=== PATIENT | female | born 1980 | race Caucasian/White ===

== ENCOUNTER 2016-12-19 18:23 | Observation (INO) | payer OTHER ==
[2016-12-19] MEDS ORDERED: Sodium Chloride 0.9% 1,000 ML IV ONE (19:00)
[2016-12-19] MEDS ORDERED: Morphine 2 MG/ML Syringe IVPUSH ONE (19:00)
[2016-12-19] MEDS ORDERED: Ondansetron 4 MG/2 ML SDV IV ONE (19:00)
--- NOTE | 2016-12-19 19:05 | EDM.PDOC ---
ED HPI GI/ABDOMINAL - General Chief Complaint: Abdominal Pain Stated Complaint: ABDOMINAL PAIN Time Seen by Provider: 12/19/16 19:01 Source of Information: Reports: Patient History Limitations: Reports: No limitations - History of Present Illness INITIAL COMMENTS - FREE TEXT/NARRATIVE: epiG pain been on prilosec. has appt with GI @ [facility] thursday. pain worse today N/V. - Related Data Allergies/ADRs: Allergies Allergy/AdvReac Type Severity Reaction Status Date / Time Sulfa (Sulfonamide Allergy Hives Verified 11/18/16 16:03 Antibiotics) Home Meds: Home Meds Acetaminophen [Tylenol] 325 mg PO PRN 11/18/16 [History] Norgestimate-Ethinyl Estradiol [Bland-Linyah 28 Tablet] 1 tab PO DAILY 11/18/16 [ History] Past Medical History - Past Surgical History HEENT Surgical History: Reports: Other (see below) Other HEENT Surgeries/Procedures: wisdom teeth Social & Family History - Family History Family Medical History: Noncontributory - Tobacco Use Smoking Status *Q: Current Some Day Smoker Years of Tobacco use: 10 Packs/Tins Daily: 0.1 Second Hand Smoke Exposure: Yes - Caffeine Use Caffeine Use: Reports: Coffee - Recreational Drug Use Recreational Drug Use: No ED ROS GENERAL - Review of Systems Review Of Systems: ROS reveals no pertinent complaints other than HPI. ED EXAM, GI/ABD - Physical Exam Exam: See Below Exam Limited By: No limitations General Appearance: alert, WD/WN, mild distress, other (crying) Ears: hearing grossly normal Throat/Mouth: Normal voice, No airway compromise Head: atraumatic Neck: non-tender, full range of motion Respiratory/Chest: no respiratory distress Cardiovascular: regular rate, rhythm GI/Abdominal: tenderness, guarding, other (epiG). No: rebound, rigidity Neurological: alert, oriented, normal cognition, no motor/sensory deficits Psychiatric: tearful Skin Exam: Warm, Dry Lymphatic: no adenopathy Course - Vital Signs Last Recorded V/S: Last Vital Signs Temp 36.6 C 12/19/16 21:54 Pulse 63 12/19/16 21:54 Resp 18 12/19/16 21:54 BP 123/69 12/19/16 21:54 Pulse Ox 98 12/19/16 21:54 - Orders/Labs/Meds Labs: Laboratory Tests 12/19/16 12/19/16 Range/Units 19:05 19:05 WBC 11.8 H (5.0-10.0) 10^3/uL RBC 4.39 (4.2-5.4) 10^6/uL Hgb 14.2 (12.0-16.0) g/dL Hct 40.7 (37.0-47.0) % MCV 92.7 (80-100) fL MCH 32.3 (27.0-34.0) pg MCHC 34.9 (33.0-35.0) g/dL Plt Count 279 (150-450) 10^3/uL Neut % (Auto) 68.8 (42.2-75.2) % Lymph % (Auto) 20.2 L (20.5-50.1) % Bland % (Auto) 9.0 H (2-8) % Eos % (Auto) 1.7 (1.0-3.0) % Baso % (Auto) 0.3 (0.0-1.0) % Sodium 136 (135-145) mmol/L Potassium 3.5 L (3.6-5.0) mmol/L Chloride 100 L (101-111) mmol/L Carbon Dioxide 25.0 (21.0-31.0) mmol/L Anion Gap 14.5 BUN 13 (7-18) mg/dL Creatinine 0.7 (0.6-1.3) mg/dL Est Cr Clr Drug Dosing TNP Estimated GFR (MDRD) > 60 BUN/Creatinine Ratio 18.57 Glucose 108 H (74-105) mg/dL Calcium 8.9 (8.4-10.2) mg/dl Total Bilirubin 1.4 H (0.2-1.0) mg/dL AST 54 H (10-42) IU/L ALT 32 (10-60) IU/L Alkaline Phosphatase 64 (42-121) IU/L Total Protein 7.5 (6.7-8.2) g/dl Albumin 4.3 (3.2-5.5) g/dl Globulin 3.2 Albumin/Globulin Ratio 1.34 Amylase 42 (28-100) U/L Lipase 22 (22-51) U/L Meds: Medications Discontinued Medications Generic Name Dose Route Start Last Admin Trade Name Freq PRN Reason Stop Dose Admin Hydromorphone HCl 1 mg 12/19/16 20:44 12/19/16 20:51 Dilaudid IVPUSH 12/19/16 20:45 1 mg ONETIME ONE Administration Sodium Chloride 1,000 mls @ 999 mls/hr 12/19/16 19:00 12/19/16 19:10 Normal Saline IV 12/19/16 20:00 999 mls/hr .BOLUS ONE Administration Iopamidol 75 ml 12/19/16 20:43 12/19/16 21:04 Isovue-300 (61%) IVPUSH 12/19/16 20:44 75 ml ONETIME ONE Administration Morphine Sulfate 2 mg 12/19/16 19:00 12/19/16 19:11 Morphine IVPUSH 12/19/16 19:01 2 mg ONETIME ONE Administration Ondansetron HCl 4 mg 12/19/16 19:00 12/19/16 19:11 Zofran IV 12/19/16 19:01 4 mg ONETIME ONE Administration - Re-Assessments/Exams Free Text/Narrative Re-Assessment/Exam: 12/19/16 22:[address] Mahoney who kindly admitted Pt. Departure - Departure Time of Disposition: 22:40 Disposition: Refer to Observation Condition: good Clinical Impression: Cholecystitis with cholangitis Forms: ED Department Discharge
[2016-12-19 19:36] LABS: CHLORIDE,CL 100 mmol/L (101-111); SODIUM,NA 136 mmol/L (135-145)
[2016-12-19] MEDS ORDERED: Iopamidol 612 MG/ML 75 ML Bottle IVPUSH ONE (20:43)
[2016-12-19] MEDS ORDERED: HYDROmorphone 1 MG/ML Syringe IVPUSH ONE (20:44)
[2016-12-19] MEDS ORDERED: Sodium Chloride 0.9% 1,000 ML IV SCH (23:30)
[2016-12-20] MEDS: Acetaminophen 325 MG Tab PO PRN ×2 (00:16→07:45)
[2016-12-20] MEDS ORDERED: HYDROmorphone 1 MG/ML Syringe IVPUSH PRN (01:25)
[2016-12-20] MEDS ORDERED: Ondansetron 4 MG/2 ML SDV IV PRN (02:31)
--- NOTE | 2016-12-20 03:22 | HP ---
CHIEF COMPLAINT: Right upper quadrant pain. HISTORY OF PRESENT ILLNESS: Ms. Eagle is a 36-year-old female, who has now had 2 months where she has had about 4 episodes of severe right upper quadrant pain. This pain just suddenly just started spontaneously and then goes ahead and radiates more to the right upper quadrant and goes into the back. The pain, she says will last for 2-3 hours. Sometimes, she actually gets like diaphoretic and then completely goes away. She does not feel that she has any real food intolerances. She does not feel that she can relate it to anything else. Of note, she has been also having some vague heartburn and she has already been scheduled for a GI evaluation, which is to include on Thursday up. Her last episode was about a month ago and she had a CT scan of her abdomen and pelvis, which was only remarkable for the Prilosec pills that was in her constipated stool. A CT scan at that time did not show anything with the gallbladder of significance. Today, she comes with another one of these attacks. She states she had one like last week, which was not as bad but this one was such that she was unable to get comfortable. She subsequently now has had some Dilaudid and she is significantly better, although she feels quite weak. Repeat CT scan of her abdomen and pelvis does show distended gallbladder with some mild thickening. They do not comment about her common bile duct but I think there is slight dilation of her common bile duct. On her CT scan, there is some nodules over lung which we will talk about later. ALLERGIES: To sulfa. CURRENT MEDICATIONS: 1. control pill. 2. . SOCIAL HISTORY: She is smoking occasional, alcohol occasion. She has 3 children, alive and well. She is and she is 1 of our nurses. PAST SURGICAL HISTORY: None. FAMILY HISTORY: She has 2 brothers alive and well. Parents alive and well. REVIEW OF SYSTEMS: She has no history of seizures. No history of thyroid, diabetes, or hepatitis. No history of shortness of breath or cough. No history of cardiac arrhythmia or palpitations. GI: As above but she does states she has never had acholic stools, bloody diarrhea, or any dark tarry stools. She is more on the constipated side. : No history of hematuria or dysuria. No history of joint pain or tenderness. No history of bruising or DVT. PHYSICAL EXAMINATION: Vital signs: GCS is 15. HEENT: Sclerae white. Neck: Without mass. Lungs: Clear. Heart: Rhythm is regular. Abdomen: There is no guarding or rebound. To deep palpation, there is some tenderness which she stated "an hour ago, you couldn't have taken care of this." Extremities: Ankles are free of edema. LABORATORY DATA: WBC is 11,800, H and H are 14 and 40, and her platelet count is 273. Her electrolytes demonstrate potassium of 3.5, her glucose is 108. Her total bilirubin is 1.4 and this was normal before. Amylase and lipase are normal and her AST is 54. IMPRESSION AND PLAN: 1. I really think this patient is having symptomatic cholelithiasis. We do not see any gallstones on her CT scan but I would highly recommend that what she does need is an ultrasound of her gallbladder as well as her common bile duct. This does not have to be done here urgently. I explained to the patient that I think we need to admit her for pain control and she needs to have a repeat of her liver function tests in the morning. If the bilirubin continues to rise, I would recommend that we need to transfer her for possible ERCP. 2. She and her understand my concerns and my desire to admit her here for observation and she agrees to do this. 3. History of some vague epigastric pain before. Like I said, for now, it appears to be biliary in nature. She could also possibly have some gastritis from the past but clearly I do not think that any of the problems at this time. This can, however, be worked up later once the biliary problem is taken care of. 4. Some chronic constipation. [facility] /[id number]
[2016-12-20 07:03] LABS: CHLORIDE,CL 106 mmol/L (101-111); SODIUM,NA 139 mmol/L (135-145)
[2016-12-20] MEDS ORDERED: cefTRIAXone 1 GM in Sodium Chloride 0.9% 100 ML IV SCH (09:30)
[2016-12-20] MEDS ORDERED: Acetaminophen/HYDROcodone 325-10 MG Tab PO PRN (09:32)
[2016-12-20 12:17] VITALS: BP 106/55
--- NOTE | 2016-12-20 14:02 | PCM.SN ---
- Free Text/Narrative Note: She is feeling better she was able to tolerate the diet the plan will be for an ultrasound of her gall bladder on thursday then perhaps eval by Dr. Wesley in [place] for brijesh or she can wait to have her surgery here when I come back. if she develops pain before that she needs to be eval again
--- NOTE | 2016-12-20 14:44 | DISCH ---
PRIMARY DIAGNOSIS: Biliary colic. PROCEDURES PERFORMED: None. BRIEF HISTORY: Rajni Eagle is a 36-year-old female, who has had three episodes of severe right upper quadrant epigastric pain over the course of the last 8-12 weeks, this is probably the most severe. Of note, her liver functions were normal a month ago. Yesterday, when she admitted, her bilirubin was up to 1.4. We subsequently admitted her overnight for pain control and to make sure that she did not have any signs of cholangitis, though she remained afebrile and her WBC was only elevated to 11,800. Over the course of night, she remained afebrile and this morning, her bilirubin was 0.9, but her AST was mildly increased at 84. Her alkaline phosphatase and her ALT were all normal. Symptomatically, she was improved and she was able to tolerate a full liquid diet. Though that we have pain control with p.o., the plan will be, on Thursday morning at 8 o'clock, I have scheduled her for an ultrasound of her gallbladder. She has not had this done in the past, she has just simply had a CT scan of her abdomen and pelvis which did not demonstrate cholelithiasis, just a little distended gallbladder. Of note, if the symptoms reoccur before that, I want her to come back immediately and I gave her my phone number. I also spoke with Dr. Garvin in [place], he is the surgeon on-call, so that if things deteriorate, he will be aware that we will have to send her there so we can get things taken care of exceptionally. As an incidental finding on the CT scan, there were several nodules both on the right and the left. She does have a history of smoking, so I did bring this to her attention and that she definitely needs to have this followed up within 6 months. Her discharge diet is bland. Discharge activity as tolerated. DISCHARGE MEDICATIONS: Shady, I gave her a total of 14 tablets, one tablet every 3 hours p.r.n. pain. If the pain is more than that, she is to come back to the Emergency Department. PROGNOSIS: Her discharge prognosis is good, but really, the plan will be we are going to see if we can get her gallbladder out here within the next week or so. [facility] /[id number]
--- NOTE | 2016-12-22 09:08 | PN ---
DATE: 12/20/2016 [facility] CHIEF COMPLAINT: Right upper quadrant pain. HISTORY OF PRESENT ILLNESS: The patient states that over the night the pain is somewhat better, although, she is a little bit sore still in the right upper quadrant only medially. She stated that she has no fever. She has had a little bit of nausea but no vomiting. She is still not hungry. PHYSICAL EXAMINATION: Vital Signs: Her GCS is 15. She is not tachycardic, and like I said she has been afebrile at 97.8, her heart rate is 63, blood pressure is stable. Abdomen: I cannot palpate her gallbladder. She does not have a Oquendo's sign, and it is similar to last night, she is a little bit sore in the right upper quadrant. LABORATORY DATA: This morning, her bilirubin normalized to 0.9, but her AST is slightly more at 84. Her alk phos is normal. IMPRESSION AND PLAN: I do think this patient had an episode of cholecystitis, probably choledocholithiasis and has passed the stone. Clearly, she is not at the point for discharge as she is still not eating, and she still has significant pain. The plan will be as decided that she does need an ultrasound of her gallbladder to evaluate the common bile duct. I explained to her that obviously we cannot do this. We do not have the capabilities here, but the fact she is getting better, I feel comfortable to do this on Thursday, then the decision would be the timing to remove her gallbladder. The plan will be today that I will come back and evaluate her early this afternoon and see if the pain is under control with some p.o. I will make sure that she has not had any sort of fever and decide whether we could discharge her if she is improving, to do this as an outpatient, or whether we would need to have to transfer her. I discussed this with the patient and her , they understand and we will proceed from here. The time I spent with her, reviewing the chart, discussing with the nurses and her I would say would be about 19-1/2 minutes. [facility] /[id number]
== END 2016-12-20 15:45 | disposition home or self-care (01) ==
LOC: DL.ED 18:23 → DL.MS 23:18
PROVIDERS: ADMIT Surgery; ATTEND Surgery
DX: K80.40 Calculus of bile duct with cholecystitis, unspecified, without obstruction (principal); Z88.2 Allergy status to sulfonamides; F17.210 Nicotine dependence, cigarettes, uncomplicated; K59.09 Other constipation
CPT/HCPCS: 36415; 74177; 80053; 82150; 83690; 85025; 96365; 96375; 99285; A9270; J0696; J1170; J2270; J2405; J7030; J7050; Q9967; 96361; 96376; 99217; 99219; G0378

== ENCOUNTER 2022-06-05 13:16 | Inpatient (IN) | payer BC, OTHER ==
[2022-06-05] MEDS ORDERED: Sodium Chloride 0.9% 1,000 ML IV ONE ×2 (15:09→15:39)
[2022-06-05] MEDS ORDERED: Ketorolac 30 MG/ML SDV IVPUSH ONE (15:09)
[2022-06-05] MEDS ORDERED: Ondansetron 4 MG/2 ML SDV IVPUSH ONE (15:09)
[2022-06-05 15:26] LABS: AMPHETAMINES,URINE NEGATIVE (NEGATIVE); BARBITURATES,URINE NEGATIVE (NEGATIVE); BENZODIAZEPINE,URINE NEGATIVE (NEGATIVE); MDMA (ECSTASY), URINE NEGATIVE (NEGATIVE); METHADONE,URINE NEGATIVE (NEGATIVE); METHAMPHETAMINES,URINE NEGATIVE (NEGATIVE); OPIATES,URINE NEGATIVE (NEGATIVE); PHENCYCLIDINE,URINE NEGATIVE (NEGATIVE); TCA,URINE NEGATIVE (NEGATIVE)
[2022-06-05 15:27] LABS: OXYCODONE,URINE NEGATIVE (NEGATIVE)
[2022-06-05 15:27] LABS: ANION GAP 13.6 mEq/L (7-13); CHLORIDE,CL 95 mmol/L (98-107); SODIUM,NA 135 mmol/L (136-145)
[2022-06-05 15:30] LABS: ESTIMATED GFR 38 mL/min (>=60)
[2022-06-05] MEDS ORDERED: Potassium Chloride 20 MEQ in Premix Bag 1 BAG IV ONE (15:39)
[2022-06-05] MEDS ORDERED: Acetaminophen 500 MG Tab PO ONE (15:56)
[2022-06-05] MEDS ORDERED: fentaNYL 100 MCG/2 ML SDV IVPUSH ONE (15:56)
[2022-06-05] MEDS ORDERED: Piperacillin/Tazobactam 3.375 GM in Sodium Chloride 0.9% 100 ML IV ONE (16:57)
[2022-06-05] MEDS ORDERED: Ondansetron 4 MG Tab.DIS PO PRN (18:08)
[2022-06-05] MEDS: Sodium Chloride 0.9% 1,000 ML IV SCH (20:11)
[2022-06-05] MEDS: cefTRIAXone 1 GM in Sodium Chloride 0.9% 50 ML IV SCH (20:16)
[2022-06-05] MEDS: Oxybutynin 5 MG Tab PO PRN (20:19)
[2022-06-05] MEDS: Acetaminophen 325 MG Tab PO PRN (20:19)
[2022-06-05] MEDS: Morphine 2 MG/ML SYRINGE IVPUSH PRN (22:19)
[2022-06-06] MEDS: Morphine 2 MG/ML SYRINGE IVPUSH PRN (00:30)
[2022-06-06] MEDS: Acetaminophen 325 MG Tab PO PRN ×2 (00:33→14:09)
[2022-06-06] MEDS: Ondansetron 4 MG/2 ML SDV IVPUSH PRN ×5 (01:20→22:36)
[2022-06-06] MEDS: HYDROmorphone 1 MG/ML Syringe IVPUSH PRN ×5 (02:39→21:56)
[2022-06-06] MEDS: Acetaminophen/Butalbital/Caffeine 325-50-40 MG Tab PO PRN ×5 (02:41→22:35)
[2022-06-06] MEDS: Sodium Chloride 0.9% 1,000 ML IV SCH ×3 (03:12→19:50)
[2022-06-06] MEDS: Oxybutynin 5 MG Tab PO PRN ×2 (08:28→16:13)
[2022-06-06] MEDS: cefTRIAXone 1 GM in Sodium Chloride 0.9% 50 ML IV SCH ×2 (08:30→21:59)
[2022-06-06 10:19] LABS: ANION GAP 11.9 mEq/L (7-13)
[2022-06-06] MEDS ORDERED: Sodium Chloride 0.9% 1,000 ML IV ONE ×2 (11:15→13:16)
[2022-06-06] MEDS ORDERED: D5 1/2 NS w/ 10 mEq/L KCl 1,000 ML IV SCH (11:30)
[2022-06-06] MEDS: Potassium Chloride Riders 10 MEQ in Premix Bag 1 BAG IV SCH ×4 (12:08→16:30)
[2022-06-07] MEDS: Sodium Chloride 0.9% 1,000 ML IV SCH ×3 (01:31→10:54)
[2022-06-07] MEDS: HYDROmorphone 1 MG/ML Syringe IVPUSH PRN ×6 (01:31→23:57)
[2022-06-07] MEDS: Acetaminophen/Butalbital/Caffeine 325-50-40 MG Tab PO PRN ×2 (06:37→17:21)
[2022-06-07] MEDS: Ondansetron 4 MG/2 ML SDV IVPUSH PRN (06:39)
[2022-06-07] MEDS ORDERED: Sodium Chloride 0.9% 500 ML IV ONE (08:30)
[2022-06-07] MEDS ORDERED: Potassium Chloride 20 MEQ in Premix Bag 1 BAG IV ONE (08:30)
[2022-06-07] MEDS: cefTRIAXone 1 GM in Sodium Chloride 0.9% 50 ML IV SCH ×2 (09:04→20:59)
[2022-06-07] MEDS: Potassium Chloride 10 MEQ Tab.ER PO SCH ×2 (09:14→14:08)
[2022-06-07] MEDS: Pantoprazole 40 MG Tab.CR PO SCH (10:53)
[2022-06-07] MEDS: DULoxetine 30 MG Cap PO SCH (10:53)
[2022-06-07] MEDS: Oxybutynin 5 MG Tab PO PRN ×2 (10:53→17:32)
[2022-06-07] MEDS: Docusate Sodium 100 MG Cap PO PRN ×2 (11:31→21:00)
[2022-06-07] MEDS: busPIRone 15 MG Tab PO SCH (11:40)
[2022-06-07] MEDS: Acetaminophen 325 MG Tab PO PRN ×2 (18:55→23:53)
[2022-06-07] MEDS: Heparin Sodium 5,000 Units/ML Vial SUBCUT SCH (21:08)
[2022-06-08] MEDS: Sodium Chloride 0.9% 1,000 ML IV SCH (01:37)
[2022-06-08] MEDS: HYDROmorphone 1 MG/ML Syringe IVPUSH PRN ×3 (05:35→22:47)
[2022-06-08] MEDS: Pantoprazole 40 MG Tab.CR PO SCH (05:37)
[2022-06-08] MEDS: Acetaminophen 325 MG Tab PO PRN ×3 (05:37→22:48)
[2022-06-08 07:25] LABS: ANION GAP 13.7 mEq/L (7-13)
[2022-06-08] MEDS: Heparin Sodium 5,000 Units/ML Vial SUBCUT SCH ×2 (09:31→20:50)
[2022-06-08] MEDS: DULoxetine 30 MG Cap PO SCH (09:33)
[2022-06-08] MEDS: busPIRone 15 MG Tab PO SCH (09:33)
[2022-06-08] MEDS: Docusate Sodium 100 MG Cap PO PRN (09:33)
[2022-06-08] MEDS: Sodium Chloride 0.9% 10 ML Syringe FLUSH PRN (09:35)
[2022-06-08] MEDS ORDERED: Water For Injection, Sterile 20 ML ONE ×2 (11:27→20:22)
[2022-06-08] MEDS: Meropenem 1 GM SDV IVPUSH SCH ×2 (11:31→20:50)
[2022-06-08] MEDS ORDERED: Midodrine 2.5 MG Tab PO PRN (11:41)
[2022-06-08] MEDS: Ondansetron 4 MG/2 ML SDV IVPUSH PRN (12:51)
[2022-06-08] MEDS ORDERED: Meropenem 1 GM SDV IVPUSH SCH (14:00)
[2022-06-08] MEDS ORDERED: Polyethylene Glycol 3350 Powder 17 GM Packet PO PRN (14:00)
[2022-06-08] MEDS ORDERED: Meropenem 1 GM in Sodium Chloride 0.9% 100 ML IV SCH (14:00)
[2022-06-08] MEDS ORDERED: Benzocaine/Docusate Sodium 20-283 MG/5 ML Enema RECTAL ONE (20:33)
[2022-06-08] MEDS ORDERED: Sodium Chloride 0.9% 500 ML IV SCH ×2 (21:45→22:01)
[2022-06-08] MEDS ORDERED: Furosemide 20 MG/2 ML VIAL IVPUSH ONE (23:58)
[2022-06-09] MEDS ORDERED: Water For Injection, Sterile 20 ML ONE (03:34)
[2022-06-09] MEDS: Meropenem 1 GM SDV IVPUSH SCH (03:54)
[2022-06-09] MEDS: Acetaminophen 325 MG Tab PO PRN ×3 (04:04→21:00)
[2022-06-09] MEDS: Pantoprazole 40 MG Tab.CR PO SCH (06:03)
[2022-06-09] MEDS: HYDROmorphone 1 MG/ML Syringe IVPUSH PRN ×3 (06:04→22:03)
[2022-06-09 07:00] LABS: ANION GAP 13.1 mEq/L (7-13)
[2022-06-09] MEDS ORDERED: Albuterol/Ipratropium 3.0-0.5 MG/3 ML Neb Soln NEB PRN (07:41)
[2022-06-09] MEDS ORDERED: Potassium Chloride 10 MEQ Tab.ER PO ONE (09:16)
[2022-06-09] MEDS ORDERED: Furosemide 20 MG/2 ML VIAL IVPUSH ONE (10:00)
[2022-06-09] MEDS: Heparin Sodium 5,000 Units/ML Vial SUBCUT SCH ×2 (10:35→22:06)
[2022-06-09] MEDS: DULoxetine 30 MG Cap PO SCH (10:36)
[2022-06-09] MEDS: busPIRone 15 MG Tab PO SCH (10:36)
[2022-06-09] MEDS: Meropenem 1 GM in Sodium Chloride 0.9% 100 ML IV SCH ×2 (13:17→22:04)
[2022-06-09] MEDS: Sodium Chloride 0.9% 10 ML Syringe FLUSH PRN (22:05)
[2022-06-10] MEDS: HYDROmorphone 1 MG/ML Syringe IVPUSH PRN (04:36)
[2022-06-10] MEDS: Pantoprazole 40 MG Tab.CR PO SCH (07:04)
[2022-06-10] MEDS: Meropenem 1 GM in Sodium Chloride 0.9% 100 ML IV SCH ×3 (07:04→21:10)
[2022-06-10] MEDS: Acetaminophen 325 MG Tab PO PRN ×2 (07:11→16:39)
[2022-06-10] MEDS ORDERED: HYDROmorphone 1 MG/ML Syringe IVPUSH PRN (07:56)
[2022-06-10] MEDS: DULoxetine 30 MG Cap PO SCH (08:58)
[2022-06-10] MEDS: busPIRone 15 MG Tab PO SCH (08:58)
[2022-06-10] MEDS: Acetaminophen/Butalbital/Caffeine 325-50-40 MG Tab PO PRN ×2 (08:59→17:30)
[2022-06-10] MEDS: Heparin Sodium 5,000 Units/ML Vial SUBCUT SCH ×2 (08:59→21:10)
[2022-06-10] MEDS: NORGESTIMATE ETHINYL ESTRADIOL PO SCH (09:00)
[2022-06-10] MEDS: Potassium Chloride 10 MEQ Tab.ER PO SCH ×2 (12:34→17:31)
[2022-06-10] MEDS: Sodium Chloride 0.9% 10 ML Syringe FLUSH PRN ×2 (21:14→23:16)
[2022-06-10] MEDS: oxyCODONE 5 MG Tab PO PRN (23:16)
[2022-06-11] MEDS: Pantoprazole 40 MG Tab.CR PO SCH (05:16)
[2022-06-11] MEDS: oxyCODONE 5 MG Tab PO PRN (05:16)
[2022-06-11] MEDS: Meropenem 1 GM in Sodium Chloride 0.9% 100 ML IV SCH (05:18)
[2022-06-11 07:01] LABS: ANION GAP 13.4 mEq/L (7-13)
[2022-06-11 08:14] VITALS: BP 117/72; PULSE 92
[2022-06-11] MEDS ORDERED: Potassium Chloride 10 MEQ Tab.ER PO ONE (08:24)
[2022-06-11] MEDS ORDERED: guaiFENesin/Dextromethorphan 100-10 MG/5 ML Soln 5 ML Cup PO PRN (09:20)
[2022-06-11] MEDS: DULoxetine 30 MG Cap PO SCH (09:27)
[2022-06-11] MEDS: busPIRone 15 MG Tab PO SCH (09:27)
[2022-06-11] MEDS: Heparin Sodium 5,000 Units/ML Vial SUBCUT SCH (09:29)
[2022-06-11] MEDS: NORGESTIMATE ETHINYL ESTRADIOL PO SCH (09:29)
[2022-06-11] MEDS: Acetaminophen 325 MG Tab PO PRN (09:55)
== END 2022-06-11 12:00 | disposition home or self-care (01) | DRG 720 ==
LOC: DL.ED 13:16 → DL.MS 17:22
PROVIDERS: ADMIT Hospitalist; ATTEND Internal Medicine
DX: A41.51 Sepsis due to Escherichia coli [E. coli] (principal); J18.9 Pneumonia, unspecified organism; J96.01 Acute respiratory failure with hypoxia; N39.0 Urinary tract infection, site not specified; B96.20 Unspecified Escherichia coli [E. coli] as the cause of diseases classified elsewhere; Z20.822 Contact with and (suspected) exposure to COVID-19; N17.9 Acute kidney failure, unspecified; E87.2 Acidosis; K21.9 Gastro-esophageal reflux disease without esophagitis; I12.9 Hypertensive chronic kidney disease with stage 1 through stage 4 chronic kidney disease, or unspecified chronic kidney disease; N18.9 Chronic kidney disease, unspecified; E87.6 Hypokalemia; Z79.1 Long term (current) use of non-steroidal anti-inflammatories (NSAID); Z79.52 Long term (current) use of systemic steroids; Z79.899 Other long term (current) drug therapy; Z88.2 Allergy status to sulfonamides; Z87.440 Personal history of urinary (tract) infections; Z90.49 Acquired absence of other specified parts of digestive tract
CPT/HCPCS: 36415; 51798; 71250; 74176; 80048; 80053; 80202; 80305-QW; 80307; 81001; 81025; 82150; 83605; 83690; 83735; 83880; 84145; 85025; 86038; 86140; 86317; 86803; 87040; 87086; 87088; 87186; 87340; 87641; 96361; 96374; 96375; 99284; 99285-25; A9270-GY; C1758; J0696; J1170; J1644; J1885; J1940; J2185; J2270; J2405; J2543; J3010; J3370; J3480; J3490; J7030; J7040; J7050; U0002

== ENCOUNTER 2022-08-16 09:52 | Emergency (ER) | payer BC ==
[2022-08-16 10:16] VITALS: BP 129/89; PULSE 106
[2022-08-16 11:23] LABS: ANION GAP 13.6 mEq/L (7-13)
[2022-08-16 11:24] LABS: CORONAVIRUS COVID-19 NAA POSITIVE (NEGATIVE)
[2022-08-16] MEDS ORDERED: Ketorolac 30 MG/ML SDV IM ONE (11:30)
[2022-08-16] MEDS ORDERED: diphenhydrAMINE 25 MG Tab PO ONE (11:31)
[2022-08-16] MEDS ORDERED: Metoclopramide 10 MG Tab PO ONE (11:31)
== END 2022-08-16 12:40 | disposition home or self-care (01) ==
LOC: DL.ED 09:52
DX: U07.1 COVID-19 (principal); G43.909 Migraine, unspecified, not intractable, without status migrainosus
CPT/HCPCS: 0240U; 36415; 80053; 82150; 83605; 83690; 85025; 87081; 87430; 96372; 99284; A9270; J1885

== ENCOUNTER 2024-03-11 11:25 | Emergency (ER) | payer BC ==
[2024-03-11 10:30] LABS: BASOPHILS PERCENT AUTO 0.1 % (0.0-1.0); HEMATOCRIT 41.8 % (37.0-47.0); HEMOGLOBIN 14.9 g/dL (12.0-16.0); LYMPHOCYTES PERCENT AUTO 2.7 % (20.5-50.1); MEAN CORPUSCULAR HEMOGLOBIN 34.5 pg (27.0-34.0); MEAN CORPUSCULAR HGB CONC 35.6 g/dL (33.0-35.0); MEAN CORPUSCULAR VOLUME 96.8 fL (80-100); MONOCYTES PERCENT AUTO 3.5 % (2-8); NEUTROPHILS PERCENT AUTO 93.7 % (42.2-75.2); PLATELET COUNT,PLT 267 10^3/uL (150-450); RED BLOOD CELL COUNT 4.32 10^6/uL (4.2-5.4); WHITE BLOOD CELL COUNT,WBC 25.3 10^3/uL (5.0-10.0)
[2024-03-11 10:45] LABS: INR 0.9 (0.9-1.2); PROTHROMBIN TIME 9.5 SEC (9.0-12.0)
[2024-03-11] MEDS: Iopamidol 612 MG/ML 100 ML Bottle IVPUSH ONE (10:55)
[2024-03-11 11:02] LABS: ALANINE AMINOTRANSFERASE,ALT 27 U/L (14-59); ALBUMIN 3.6 g/dL (3.4-5.0); ALKALINE PHOSPHATASE 76 U/L (46-116); ANION GAP 19.1 mEq/L (7-13); ASPARTATE AMNIOTRANSFERASE,AST 55 U/L (15-37); BILIRUBIN TOTAL 0.8 mg/dL (0.2-1.0); BLOOD UREA NITROGEN,BUN 9 mg/dL (7-18); BUN/CREATININE RATIO 12.2 (No establ ref range); CALCIUM 8.7 mg/dL (8.5-10.1); CARBON DIOXIDE,CO2 23 mmol/L (21-32); CHLORIDE,CL 99 mmol/L (98-107); CREATINE KINASE,CK 1359 U/L (16-191); CREATININE 0.74 mg/dL (0.55-1.02); ESTIMATED GFR 102 mL/min (>=60); ETHANOL BLOOD MEDICAL 5 mg/dL (0); GLUCOSE RANDOM 136 mg/dL (70-99); MAGNESIUM 1.4 mg/dL (1.8-2.4); POTASSIUM,K 3.1 mmol/L (3.5-5.1); PROTEIN TOTAL,TP 7.3 g/dL (6.4-8.2); SODIUM,NA 138 mmol/L (136-145)
[2024-03-11 11:11] LABS: LACTIC ACID 3.8 mmol/L (0.4-2.0)
[2024-03-11] MEDS: cefTRIAXone 1 GM Vial IVPUSH ONE (11:17)
[~2024-03-11 11:25] MED LIST: Sodium Chloride 0.9% 1,000 ML IV ONE; levETIRAcetam in NaCl (iso-os) 1,000 MG in Premix Bag 1 BAG IV ONE
[2024-03-11 11:37] LABS: APPEARANCE,URINE CLEAR (CLEAR); BILIRUBIN,URINE NEGATIVE (NEGATIVE); GLUCOSE,URINE NEGATIVE (NEGATIVE); KETONES,URINE NEGATIVE (NEGATIVE); LEUKOCYTE ESTERASE,URINE NEGATIVE (NEGATIVE); NITRITE,URINE NEGATIVE (NEGATIVE); OCCULT BLOOD,URINE TRACE-INTACT (NEGATIVE); PROTEIN,URINE NEGATIVE (NEGATIVE); UROBILINOGEN,URINE 0.2 mg/dL (0.2-1.0)
[2024-03-11] MEDS ORDERED: Magnesium Sulfate/Water 2 GM in Premix Bag 1 BAG IV ONE (11:37)
[2024-03-11] MEDS ORDERED: Potassium Chloride 20 MEQ in Premix Bag 1 BAG IV ONE (11:37)
[2024-03-11 11:41] LABS: AMPHETAMINES,URINE NEGATIVE (NEGATIVE); BARBITURATES,URINE NEGATIVE (NEGATIVE); BENZODIAZEPINE,URINE NEGATIVE (NEGATIVE); MDMA (ECSTASY), URINE NEGATIVE (NEGATIVE); METHADONE,URINE NEGATIVE (NEGATIVE); METHAMPHETAMINES,URINE NEGATIVE (NEGATIVE); OPIATES,URINE NEGATIVE (NEGATIVE); OXYCODONE,URINE NEGATIVE (NEGATIVE); PHENCYCLIDINE,URINE NEGATIVE (NEGATIVE); TCA,URINE NEGATIVE (NEGATIVE)
[2024-03-11 11:42] LABS: COLOR,URINE LIGHT YELLOW (YELLOW)
[2024-03-11] MEDS ORDERED: Sodium Chloride 3% 500 ML IV SCH (11:45)
[2024-03-11 11:53] LABS: BACTERIA,URINE RARE /HPF (0-FEW/HPF); EPITHELIAL CELLS,URINE FEW /HPF (NOT SEEN); RBC,URINE 0-5 /HPF (0-5); WBC,URINE NOT SEEN /HPF (0-5/HPF)
== END 2024-03-11 11:44 ==
LOC: DL.ED 11:25
DX: S06.5X0A Traumatic subdural hemorrhage without loss of consciousness, initial encounter (principal); S02.91XA Unspecified fracture of skull, initial encounter for closed fracture; A41.9 Sepsis, unspecified organism; J96.90 Respiratory failure, unspecified, unspecified whether with hypoxia or hypercapnia; M62.82 Rhabdomyolysis; E87.6 Hypokalemia; E83.42 Hypomagnesemia; I10 Essential (primary) hypertension; K21.9 Gastro-esophageal reflux disease without esophagitis; Z88.2 Allergy status to sulfonamides; Z79.899 Other long term (current) drug therapy; Z79.51 Long term (current) use of inhaled steroids; Z90.49 Acquired absence of other specified parts of digestive tract; W10.8XXA Fall (on) (from) other stairs and steps, initial encounter
CPT/HCPCS: 36415; 70450; 70486; 71045; 71260; 72125; 74177; 80053; 80305-QW; 80307; 81001; 82550; 82947; 83605; 83735; 84484; 85025; 85610; 93005; 93010; 96374; 99291; 99291-25; G0390; J0696; Q9967